=== PATIENT | female | born 1960 | race African-American/Black ===

== ENCOUNTER 2016-08-17 04:50 | Emergency (ER) | payer MEDICAID ==
[~2016-08-17] VITALS: Ht 160 cm; Wt 115.0 kg
[2016-08-17] MEDS ORDERED: SODIUM CHLORIDE 0.9% 1,000 ML IV ONE (06:03)
[2016-08-17 06:33] LABS: PROTHROMBIN TIME 10.5 sec
[2016-08-17 06:37] LABS: BASOPHILS % 0.8 % (0.0-2.0); HEMATOCRIT. 38.5 % (36.0-48.0); HEMOGLOBIN. 12.1 g/dL (12.0-16.0); MEAN CORPUSCULAR HGB CONC 31.5 g/dL (31.0-37.0); MEAN CORPUSCULAR VOLUME 69.6 fL (81.0-99.0); MEAN PLATELET VOLUME 8.1 fl (7.4-10.4); MONOCYTES % 6.4 % (2.0-8.0); NEUTROPHILS % 73.8 % (40.0-76.0); PLATELET 262 x1000/uL (130-400); RED BLOOD CELL COUNT 5.53 mill/uL (4.2-5.4); RED CELL DISTRIBUTION WIDTH 16.1 % (11.6-14.6); WHITE BLOOD COUNT 12.9 x1000/uL (4.5-11.0)
[2016-08-17 06:39] LABS: DIFFERENTIAL COMMENT 1
[2016-08-17 06:40] LABS: ALANINE AMINOTRANSFERASE 20 IU/L (13-61); ALBUMIN 3.7 g/dL (3.4-5.0); ANION GAP 13; CALCIUM 9.5 mg/dL (8.5-10.1); CARBON DIOXIDE 26 mEq/L (21-32); CHLORIDE 103 mEq/L (98-107); INDEX HEMOLYSI 1 (1-3); INDEX ICTERIC 1 (1-4); INDEX LIPEMIC 1 (1-3); NT PRO B-TYPE NATRIURETIC PEP 264 pg/mL (5-125); TROPONIN I < 0.02 ng/mL (0.00-0.04); UREA NITROGEN BLOOD 15 mg/dL (7-21); eGFR > 60 mL/min (>60)
[2016-08-17 07:13] LABS: CLARITY URINE CLEAR (CLEAR); COLOR URINE YELLOW (YELLOW); GLUCOSE URINE NEGATIVE (NEGATIVE); KETONES URINE TRACE (NEGATIVE); LEUKOCYTE ESTERASE URINE NEGATIVE (NEGATIVE); NITRITE URINE NEGATIVE (NEGATIVE); OCCULT BLOOD URINE NEGATIVE (NEGATIVE); PROTEIN URINE NEGATIVE (NEGATIVE); SPECIFIC GRAVITY URINE 1.022 (1.005-1.030)
[2016-08-17] MEDS ORDERED: CLINDAMYCIN 600 MG in DEXTROSE 5% WATER 50 ML IV ONE (09:30)
[2016-08-17] MEDS ORDERED: CEFTRIAXONE 1 G PREMIX 50 ML IV ONE (09:30)
[2016-08-17] MEDS ORDERED: METHYLPREDNISOLONE SOD SUCC 125 MG/2 ML VIAL IV ONE (09:30)
[2016-08-17 11:40] VITALS: BP 149/76
[2016-08-17] MEDS ORDERED: SODIUM CHLORIDE 0.9% 10ML VIAL ONE (14:00)
[2016-08-17] MEDS ORDERED: IOHEXOL-350 100 ML BOTTLE ONE (14:00)
== END 2016-08-17 12:01 | disposition home or self-care (01) ==
LOC: ER 06:00
DX: J36 Peritonsillar abscess (principal); I10 Essential (primary) hypertension; M10.9 Gout, unspecified; Z90.710 Acquired absence of both cervix and uterus; Z98.51 Tubal ligation status
CPT/HCPCS: 36415; 70491; 71010; 80053; 81003; 83880; 84484; 85025; 85610; 87040; 87086; 93005; 96361; 96365; 96375; 99285; A4216; J0696; J2930; J3490; J7030; Q9967; Z7610; J7060

== ENCOUNTER 2016-08-19 09:10 | Emergency (ER) | payer MEDICAID ==
[~2016-08-19] VITALS: Ht 160 cm; Wt 109.5 kg
[2016-08-19] MEDS ORDERED: METH4TAB17 PO (09:24)
[2016-08-19] MEDS ORDERED: HYDR100T26 PO (09:24)
[2016-08-19] MEDS ORDERED: CLON0.1T PO (09:24)
[2016-08-19] MEDS ORDERED: CLIN-78 PO (09:24)
[2016-08-19] MEDS ORDERED: ALLO300T2 PO (09:24)
[2016-08-19] MEDS ORDERED: SPIR25TA4 PO (09:24)
[2016-08-19] MEDS ORDERED: ATEN50TA PO (09:24)
[2016-08-19] MEDS ORDERED: CHOL100046 PO (09:24)
[2016-08-19] MEDS ORDERED: KETOROLAC 30MG/ML VIAL IV STA (10:04)
[2016-08-19] MEDS ORDERED: SODIUM CHLORIDE 0.9% 1,000 ML IV ONE (10:04)
[2016-08-19 10:42] LABS: CLARITY URINE CLOUDY (CLEAR); COLOR URINE YELLOW (YELLOW); GLUCOSE URINE NEGATIVE (NEGATIVE); KETONES URINE NEGATIVE (NEGATIVE); LEUKOCYTE ESTERASE URINE NEGATIVE (NEGATIVE); NITRITE URINE NEGATIVE (NEGATIVE); OCCULT BLOOD URINE NEGATIVE (NEGATIVE); PROTEIN URINE NEGATIVE (NEGATIVE); SPECIFIC GRAVITY URINE 1.029 (1.005-1.030); UROBILINOGEN URINE 0.2 E.U./dL (0.2-1.0)
[2016-08-19 10:46] LABS: DIFFERENTIAL COMMENT 1; HEMATOCRIT. 40.6 % (36.0-48.0); HEMOGLOBIN. 12.5 g/dL (12.0-16.0); MEAN CORPUSCULAR HEMOGLOBIN 22.1 pg (28.0-32.0); MEAN CORPUSCULAR HGB CONC 30.8 g/dL (31.0-37.0); MEAN CORPUSCULAR VOLUME 71.5 fL (81.0-99.0); MEAN PLATELET VOLUME 8.1 fl (7.4-10.4); PLATELET 290 x1000/uL (130-400); RED BLOOD CELL COUNT 5.68 mill/uL (4.2-5.4); RED CELL DISTRIBUTION WIDTH 16.4 % (11.6-14.6); WHITE BLOOD COUNT 11.5 x1000/uL (4.5-11.0)
[2016-08-19 10:51] LABS: INR 1.1; PROTHROMBIN TIME 11.1 sec
[2016-08-19 10:57] LABS: ALANINE AMINOTRANSFERASE 25 IU/L (13-61); ALBUMIN 3.7 g/dL (3.4-5.0); ANION GAP 12; CALCIUM 9.4 mg/dL (8.5-10.1); CARBON DIOXIDE 24 mEq/L (21-32); CHLORIDE 110 mEq/L (98-107); INDEX HEMOLYSI 1 (1-3); INDEX ICTERIC 1 (1-4); INDEX LIPEMIC 1 (1-3); LIPASE 139 IU/L (73-393); UREA NITROGEN BLOOD 26 mg/dL (7-21); eGFR 52 mL/min (>60)
[2016-08-19 11:06] LABS: PLATELET ESTIMATE NORMAL
[2016-08-19 11:07] LABS: ANISOCYTOSIS 1+; HYPOCHROMASIA 1+
[2016-08-19 11:08] LABS: TARGET CELLS 1+
[2016-08-19 11:09] LABS: BACTERIA URINE 1+; RBC URINE NONE SEEN /hpf (0-2); SQUAMOUS EPITHELIAL CELL URINE 1+ /lpf (RARE/1+); WBC URINE 0-2 /hpf (0-2)
[2016-08-19 12:32] VITALS: BP 144/83
== END 2016-08-19 12:34 | disposition home or self-care (01) ==
LOC: ER 11:14
DX: K52.9 Noninfective gastroenteritis and colitis, unspecified (principal); I10 Essential (primary) hypertension; J36 Peritonsillar abscess; Z90.710 Acquired absence of both cervix and uterus; M10.9 Gout, unspecified
CPT/HCPCS: 36415; 80053; 81001; 83690; 85025; 85610; 96361; 96374; 99285; J1885; J7030; Z7610

== ENCOUNTER 2023-12-29 16:43 | Emergency (ER) | payer MEDICAID, OTHER ==
[~2023-12-29] VITALS: Ht 160 cm; Wt 105.0 kg
[~2023-12-29 16:43] MED LIST: ALLO300T2 PO; ATEN50TA PO; CHOL100046 PO; CLIN-116 PO; CLON0.1T PO; HYDR100T26 PO; METH4TAB17 PO; SPIR25TA6 PO
[2023-12-29 16:53] VITALS: TEMP 97.5; O2SAT 94
[2023-12-29] MEDS ORDERED: CLONIDINE 0.2MG TABLET PO ONE (17:30)
[2023-12-29] MEDS: IBUPROFEN 600MG TABLET PO ONE (17:50)
[2023-12-29] MEDS: CLONIDINE 0.1MG TABLET PO NR (17:50)
[2023-12-29 19:10] VITALS: BP 147/70; PULSE 65; RESP 18; O2SAT 94
[2023-12-29] MEDS ORDERED: IBUP-2028 MT (19:29)
== END 2023-12-29 17:55 | disposition home or self-care (01) ==
LOC: ER 16:43
DX: I10 Essential (primary) hypertension (principal); M25.521 Pain in right elbow; M25.561 Pain in right knee; E11.9 Type 2 diabetes mellitus without complications; Z90.710 Acquired absence of both cervix and uterus; Z79.899 Other long term (current) drug therapy; W18.39XA Other fall on same level, initial encounter; Y93.89 Activity, other specified; Y92.89 Other specified places as the place of occurrence of the external cause; Y99.8 Other external cause status
CPT/HCPCS: 73080; 73560; 82962; 99284